=== PATIENT | female | born 1960 | race Caucasian/White ===

== ENCOUNTER 2017-06-04 15:49 | Inpatient (IN) | payer OTHER ==
[~2017-06-04] VITALS: Ht 154.9 cm; Wt 53.2 kg
[2017-06-04] MEDS ORDERED: FAMOTIDINE 20 MG/2 ML IVP ONE (16:00)
[2017-06-04] MEDS ORDERED: SODIUM CHLORIDE 0.9% 1,000ML IVBOLUS ONE (16:00)
[2017-06-04] MEDS ORDERED: ONDANSETRON 2MG/ML, 2ML IVPush ONE (16:00)
[2017-06-04] MEDS ORDERED: FAMOTIDINE 20 MG/2 ML ONE (16:11)
[2017-06-04] MEDS ORDERED: ONDANSETRON 2MG/ML, 2ML ONE (16:11)
[2017-06-04 16:22] LABS: HEMATOCRIT 46.8 % (34.6-47.8)
[2017-06-04] MEDS ORDERED: DAPA10TA PO (16:32)
[2017-06-04] MEDS ORDERED: FLUT1DIS5 IH (16:32)
[2017-06-04] MEDS ORDERED: OMEP20TA62 PO (16:32)
[2017-06-04 16:33] LABS: BLOOD UREA NITROGEN 28 mg/dL (7-18)
[2017-06-04 16:36] LABS: ASPARTATE AMINO TRANSFERASE 18 U/L (15-37)
[2017-06-04] MEDS ORDERED: NS + 40MEQ KCL 1,000 ML IV SCH (17:00)
[2017-06-04] MEDS ORDERED: POTASSIUM CHLORIDE 20 MEQ TAB.ER.PRT PO ONE (17:30)
[2017-06-04 17:32] LABS: PH, VENOUS 7.119 pH (7.320-7.420)
[2017-06-04] MEDS ORDERED: NS + 40MEQ KCL 1,000 ML IV ONE (17:33)
[2017-06-04] MEDS ORDERED: POTASSIUM CHLORIDE 20 MEQ TAB.ER.PRT ONE (17:33)
[2017-06-04 17:41] LABS: IS PT STATUS REG ER OR PRE ER? YES
[2017-06-04] MEDS ORDERED: OMNIPAQUE 350 MG/ML, 100ML BOTTLE ONE (17:44)
[2017-06-04] MEDS ORDERED: NS + 20MEQ KCL 1,000 ML IV SCH (18:00)
[2017-06-04] MEDS ORDERED: BISACODYL 10 MG SUPP PR PRN (18:00)
[2017-06-04] MEDS ORDERED: DOCUSATE 100 MG CAPSULE PO PRN (18:00)
[2017-06-04] MEDS ORDERED: POLYETHYLENE GLYCOL 17 GM PACKET PO PRN (18:00)
[2017-06-04] MEDS ORDERED: ACETAMINOPHEN 325 MG TABLET PO PRN (18:00)
[2017-06-04 18:38] LABS: BLOOD UREA NITROGEN 24 mg/dL (7-18)
[2017-06-04] MEDS ORDERED: NS + 20MEQ KCL 1,000 ML IV ONE ×2 (19:11→19:49)
[2017-06-04] MEDS: REGULAR INSULIN 62.5 UNITS in SODIUM CHLORIDE 0.9% 249.375 ML IV PRN (19:32)
[2017-06-04 20:00] VITALS: BP 157/77
[2017-06-04] MEDS: PLEASE ENTER ALLERGIES MC SCH ×4 (20:23→20:45)
[2017-06-04] MEDS: FAMOTIDINE 20 MG/2 ML IVPush SCH (20:45)
[2017-06-04] MEDS: ENOXAPARIN 40 MG/0.4 ML SQ SCH (20:45)
[2017-06-04] MEDS: D5%-0.9% NACL 1,000 ML IV SCH (21:30)
[2017-06-04] MEDS: D5%-0.9% NACL+KCL 20MEQ 1,000 ML IV SCH (21:57)
[2017-06-04 22:02] VITALS: BP 157/79
[2017-06-04 23:13] LABS: BLOOD UREA NITROGEN 20 mg/dL (7-18)
[2017-06-05] MEDS ORDERED: POTASSIUM CHLORIDE 20 MEQ TAB.ER.PRT PO ONE ×2 (01:00→22:00)
[2017-06-05 03:13] LABS: BLOOD UREA NITROGEN 17 mg/dL (7-18)
[2017-06-05] MEDS: D5%-0.9% NACL 1,000 ML IV SCH ×3 (04:09→21:30)
[2017-06-05 04:11] VITALS: BP 117/56
[2017-06-05] MEDS: D5%-0.9% NACL+KCL 20MEQ 1,000 ML IV SCH ×3 (05:51→22:57)
[2017-06-05 06:15] LABS: HEMATOCRIT 34.5 % (34.6-47.8); HEMOGLOBIN 11.9 g/dL (11.7-16.4); WHITE BLOOD COUNT 6.8 x10^3/uL (3.4-10)
[2017-06-05 06:49] LABS: ASPARTATE AMINO TRANSFERASE 9 U/L (15-37); BLOOD UREA NITROGEN 15 mg/dL (7-18)
[2017-06-05] MEDS: FAMOTIDINE 20 MG/2 ML IVPush SCH ×2 (08:35→20:27)
[2017-06-05 12:48] LABS: BLOOD UREA NITROGEN 11 mg/dL (7-18)
[2017-06-05 14:26] LABS: BLOOD UREA NITROGEN 10 mg/dL (7-18)
[2017-06-05] MEDS ORDERED: NS + 40MEQ KCL 1,000 ML IV SCH (17:00)
[2017-06-05] MEDS: ENOXAPARIN 40 MG/0.4 ML SQ SCH (20:27)
[2017-06-05 20:37] LABS: BLOOD UREA NITROGEN 7 mg/dL (7-18)
[2017-06-06] MEDS: D5%-0.9% NACL 1,000 ML IV SCH (03:12)
[2017-06-06 04:00] VITALS: BP 100/53
[2017-06-06 04:32] LABS: HEMATOCRIT 30.4 % (34.6-47.8); HEMOGLOBIN 10.4 g/dL (11.7-16.4); WHITE BLOOD COUNT 4.8 x10^3/uL (3.4-10)
[2017-06-06 04:41] LABS: BLOOD UREA NITROGEN 6 mg/dL (7-18)
[2017-06-06] MEDS ORDERED: POTASSIUM PHOSPHATE 44 MEQ in SODIUM CHLORIDE 0.9% 500 ML IV ONE (05:00)
[2017-06-06] MEDS: REGULAR INSULIN 62.5 UNITS in SODIUM CHLORIDE 0.9% 249.375 ML IV PRN (05:28)
[2017-06-06] MEDS: D5%-0.9% NACL+KCL 20MEQ 1,000 ML IV SCH (07:12)
[2017-06-06] MEDS: FLUTICASONE/VILANTEROL 200-25MCG/INH INH SCH (09:00)
[2017-06-06] MEDS: SODIUM PHOSPHATE 20 MMOL in SODIUM CHLORIDE 0.9% 500 ML IV ONE (09:00)
[2017-06-06] MEDS: INSULIN DETEMIR 100 UNITS/ML, PEN SQ-INSULIN SCH ×2 (09:49→21:11)
[2017-06-06] MEDS ORDERED: MAGNESIUM SULFATE PMX 4GM/100M 100 ML IV ONE (10:00)
[2017-06-06] MEDS: INSULIN ASPART 100 UNITS/ML, PEN SQ-INSULIN SCH ×3 (12:08→21:10)
[2017-06-06 13:56] VITALS: BP 132/70
[2017-06-06 18:53] VITALS: BP 121/64
[2017-06-06] MEDS: ENOXAPARIN 40 MG/0.4 ML SQ SCH (20:00)
[2017-06-07 01:54] VITALS: BP 130/66
[2017-06-07 06:02] LABS: BLOOD UREA NITROGEN 7 mg/dL (7-18)
[2017-06-07 07:16] VITALS: BP 119/69
[2017-06-07] MEDS ORDERED: POTASSIUM CHLORIDE 20 MEQ TAB.ER.PRT PO ONE (07:30)
[2017-06-07] MEDS: FLUTICASONE/VILANTEROL 200-25MCG/INH INH SCH (08:25)
[2017-06-07] MEDS: FLUCONAZOLE 200 MG TABLET PO SCH (08:26)
[2017-06-07] MEDS: INSULIN ASPART 100 UNITS/ML, PEN SQ-INSULIN SCH ×4 (08:27→21:26)
[2017-06-07] MEDS: INSULIN DETEMIR 100 UNITS/ML, PEN SQ-INSULIN SCH ×2 (10:01→21:26)
[2017-06-07 13:33] VITALS: BP 116/65
[2017-06-07 18:59] VITALS: BP 114/67
[2017-06-07] MEDS: ENOXAPARIN 40 MG/0.4 ML SQ SCH (20:00)
[2017-06-08 01:26] VITALS: BP 142/76
[2017-06-08] MEDS: INSULIN ASPART 100 UNITS/ML, PEN SQ-INSULIN SCH (07:58)
[2017-06-08] MEDS ORDERED: POTASSIUM CHLORIDE 20 MEQ TAB.ER.PRT PO SCH (08:00)
[2017-06-08 08:24] VITALS: BP 111/71
[2017-06-08] MEDS: FLUTICASONE/VILANTEROL 200-25MCG/INH INH SCH (09:00)
[2017-06-08] MEDS ORDERED: INSU100I28 SQ-INSULIN (09:36)
[2017-06-08] MEDS ORDERED: INSU100I18 SQ-INSULIN (09:36)
[2017-06-08] MEDS: INSULIN DETEMIR 100 UNITS/ML, PEN SQ-INSULIN SCH (09:45)
[2017-06-08] MEDS: FLUCONAZOLE 200 MG TABLET PO SCH (09:45)
== END 2017-06-08 11:23 | disposition home or self-care (01) | DRG 638 ==
LOC: ED 16:44 → EDIP 17:28 → CCU 19:54 → 3NE 06-06 12:15
PROVIDERS: ADMIT Hospitalist; ATTEND Hospitalist
DX: E13.10 Other specified diabetes mellitus with ketoacidosis without coma (principal); E87.1 Hypo-osmolality and hyponatremia; N17.9 Acute kidney failure, unspecified; E86.0 Dehydration; E87.6 Hypokalemia; J45.909 Unspecified asthma, uncomplicated; K21.9 Gastro-esophageal reflux disease without esophagitis; Z79.4 Long term (current) use of insulin; Z85.3 Personal history of malignant neoplasm of breast; Z90.10 Acquired absence of unspecified breast and nipple; Z88.5 Allergy status to narcotic agent; Z88.8 Allergy status to other drugs, medicaments and biological substances
CPT/HCPCS: 36415; 71275; 80048; 80053; 81001; 82010; 82803; 82962; 83036; 83605; 83735; 84100; 84132; 84484; 85025; 85610; 87081; 87086; 87106; 93005; 96361; 96374; 96375; J1650; J1815; J2405; J3480; Q9967; J3475; J7030; J7040; J7050; S0028

== ENCOUNTER → 2018-08-10 | Outpatient (CLI) | payer OTHER ==
[~2018-08-10] MED LIST: DAPA10TA PO; FLUT1DIS5 IH; INSU100I18 SQ-INSULIN; INSU100I28 SQ-INSULIN; OMEP20TA62 PO
== END | disposition home or self-care (01) ==
LOC: CFH 09:06
PROVIDERS: ATTEND Nurse Practitioner Family
DX: Z12.31 Encounter for screening mammogram for malignant neoplasm of breast (principal)
CPT/HCPCS: 77067

== ENCOUNTER → 2021-01-05 | Outpatient (CLI) | payer OTHER | END | disposition home or self-care (01) | LOC: CFH 12:42 | PROVIDERS: ATTEND Family Medicine | DX: Z85.3 Personal history of malignant neoplasm of breast (principal) | CPT/HCPCS: 76642; 77062; 77066; G0279 ==